=== PATIENT | female | born 1975 | race African-American/Black ===

== ENCOUNTER 2016-06-18 20:20 | Emergency (ER) | payer MEDICARE, OTHER ==
[~2016-06-18] VITALS: Ht 165.1 cm; Wt 74.6 kg
[~2016-06-18 20:20] MED LIST: BACTRIM DS1 TAB PO; DEPO-PROVER150 MG/M1 IM; FLEXERIL OR; HYDROCHLORO25 MG/TAB PO; HYDROXYCHLOR200 MG PO; LISINOPRIL10 MG PO; LORTAB 7.5 OR; LORTAB5 PO; MEDDOSEPAK PO; NAPROSYN500 MG OR; NAPROSYN500 MG PO; PREDNISONE; PROAIR HFA IN; PROTONIX40 MG PO; ROBITUSSIN AC10 ML PO; ZOFRAN4 MG OR; ZPAK PO; [UNRECOGNIZED DRUG - REMARK]
[2016-06-18] MEDS ORDERED: FLEXERIL5 MG PO (20:31)
[2016-06-18] MEDS ORDERED: PERCOCET 5/325M1 TAB PO (23:09)
[2016-06-18 23:16] VITALS: BP 138/92
== END 2016-06-18 23:25 | disposition home or self-care (01) ==
LOC: ED 20:20
DX: S86.911A Strain of unspecified muscle(s) and tendon(s) at lower leg level, right leg, initial encounter (principal); M79.604 Pain in right leg; R22.41 Localized swelling, mass and lump, right lower limb

== ENCOUNTER 2016-09-02 07:57 | Day surgery (SDC) | payer MEDICARE, OTHER ==
[~2016-09-02] VITALS: Ht 165.1 cm; Wt 75.7 kg
[~2016-09-02 07:57] MED LIST changes: +FLEXERIL5 MG PO; +PERCOCET 5/325M1 TAB PO
[2016-09-02] MEDS ORDERED: OMEPRAZOLE20 M2 PO (08:09)
[2016-09-02] MEDS ORDERED: DOXYCYCLINE (08:10)
[2016-09-02] MEDS ORDERED: LEFLUNOMIDE20 MG PO (08:10)
[2016-09-02] MEDS ORDERED: IBUPROFEN600 MG PO (08:11)
[2016-09-02] MEDS ORDERED: MORPHINE SUL (08:11)
[2016-09-02 08:45] LABS: BARBITURATES NEGATIVE (NEGATIVE); COCAINE NEGATIVE (NEGATIVE); METHADONE NEGATIVE (NEGATIVE); OXCYCODONE POSITIVE (NEGATIVE); TETRAHYDROCANNABIONOL NEGATIVE (NEGATIVE); TRICYLIC ANTIDEPRESSANTS NEGATIVE (NEGATIVE)
[2016-09-02 10:27] VITALS: BP 126/80
== END 2016-09-02 10:55 | disposition home or self-care (01) ==
LOC: ENDO 07:57 → ORM 13:15 → ENDO 13:55
PROVIDERS: ATTEND Internal Medicine Gastroenterology
PROC: 0DJD8ZZ Inspection of Lower Intestinal Tract, Via Natural or Artificial Opening Endoscopic (ICD-10-PCS; principal; 2016-09-02)
DX: K59.00 Constipation, unspecified (principal); R10.32 Left lower quadrant pain; R10.31 Right lower quadrant pain; K21.9 Gastro-esophageal reflux disease without esophagitis; R11.2 Nausea with vomiting, unspecified; R14.0 Abdominal distension (gaseous); R63.4 Abnormal weight loss; K64.4 Residual hemorrhoidal skin tags; K57.30 Diverticulosis of large intestine without perforation or abscess without bleeding; K64.8 Other hemorrhoids; I10 Essential (primary) hypertension; M32.9 Systemic lupus erythematosus, unspecified; Z80.0 Family history of malignant neoplasm of digestive organs

== ENCOUNTER 2018-04-04 13:21 | Emergency (ER) | payer OTHER, MEDICARE, MEDICAID ==
[~2018-04-04] VITALS: Ht 165.1 cm; Wt 90.0 kg
[~2018-04-04 13:21] MED LIST changes: +DOXYCYCLINE; +IBUPROFEN600 MG PO; +LEFLUNOMIDE20 MG PO; +MORPHINE SUL PO; +OMEPRAZOLE20 M2 PO
[2018-04-04] MEDS ORDERED: HYDROXYCHLOR200 MG PO (14:20)
[2018-04-04 15:10] VITALS: BP 144/84
== END 2018-04-04 15:10 | disposition home or self-care (01) | DRG 552 ==
LOC: ED 13:21
DX: M54.2 Cervicalgia (principal); M54.5 Low back pain; M54.6 Pain in thoracic spine; S16.1XXA Strain of muscle, fascia and tendon at neck level, initial encounter; S39.012A Strain of muscle, fascia and tendon of lower back, initial encounter; S29.012A Strain of muscle and tendon of back wall of thorax, initial encounter; R55 Syncope and collapse; V43.53XA Car driver injured in collision with pick-up truck in traffic accident, initial encounter; Y92.414 Local residential or business street as the place of occurrence of the external cause

== ENCOUNTER 2018-04-30 12:57 | Emergency (ER) | payer MEDICARE, MEDICAID ==
[~2018-04-30] VITALS: Ht 165.1 cm; Wt 90.0 kg
[2018-04-30 14:17] LABS: HEMATOCRIT 40.8 % (37.0-47.0); HEMOGLOBIN 13.7 g/dl (12.0-16.0); IMMATURE GRANULOCYTES 0.4 % (0.0-5.0); MEAN CELL VOLUME 84.8 fL CALC (80.0-100.0); MEAN CORPUSCULAR HGB 28.5 pG CALC (26.0-32.0); MEAN CORPUSCULAR HGB CONC 33.6 g/L CALC (32.0-36.0); NEUT# 6.63 thou/uL (2.00-7.15); RED BLOOD COUNT 4.81 mill/uL (4.20-5.60); RED CELL DISTRI WIDTH 12.9 % (11.5-15.5)
[2018-04-30 14:30] LABS: ALBUMIN 4.9 g/dL (3.2-5.0); ALKALINE PHOSPHATASE 66 u/l (38-126); ANION GAP 20 (6-22 (CALC)); BILIRUBIN, TOTAL 0.4 mg/dL (0.0-1.4); BUN 8 mg/dL (7-17); BUN/CREATININE RATIO 10 (12-20 (CALC)); CARBON DIOXIDE 23 mmol/l (22-30); CHLORIDE 105 mmol/l (95-108); CREATININE 0.8 mg/dL (0.5-1.0); GFR > 60 ML/MIN (>=60 (CALC)); GFR FOR AFR.AMER. > 60 ML/MIN (>=60 (CALC)); POTASSIUM 3.5 mmol/l (3.5-5.1); SGOT/AST 24 u/l (14-36); SODIUM 144 mmol/l (137-146); TOTAL PROTEIN 8.1 g/dL (6.3-8.2)
[2018-04-30 14:53] LABS: URINE BILIRUBIN - DIPSTICK NEGATIVE (NEGATIVE); URINE BLOOD DIPSTICK NEGATIVE (NEGATIVE); URINE COLOR YELLOW; URINE GLUCOSE - DIPSTICK NEGATIVE (NEGATIVE); URINE KETONE 15 mg/dL (NEGATIVE); URINE LEUK ESTERASE NEGATIVE (NEGATIVE); URINE NITRITE - DIPSTICK NEGATIVE (Negative); URINE PH 8.5 (4.5-8.0); URINE PROTEIN - DIPSTICK TRACE mg/dL (NEG-TRACE); URINE SPECIFIC GRAVITY 1.015; URINE UROBILINOGEN - DIPSTICK 0.2 E.U./dL (0.2)
[2018-04-30 14:58] LABS: BARBITURATES NEGATIVE (NEGATIVE); COCAINE NEGATIVE (NEGATIVE); METHADONE NEGATIVE (NEGATIVE); OXCYCODONE NEGATIVE (NEGATIVE); TETRAHYDROCANNABIONOL NEGATIVE (NEGATIVE); TRICYLIC ANTIDEPRESSANTS NEGATIVE (NEGATIVE)
[2018-04-30] MEDS ORDERED: ONDANSETRON4 MG PO (15:14)
[2018-04-30 15:49] VITALS: BP 145/80
== END 2018-04-30 15:49 | disposition home or self-care (01) ==
LOC: ED 12:57
PROVIDERS: Emergency Medicine
DX: R11.2 Nausea with vomiting, unspecified (principal); R20.2 Paresthesia of skin; I10 Essential (primary) hypertension; I34.1 Nonrheumatic mitral (valve) prolapse; M32.9 Systemic lupus erythematosus, unspecified

== ENCOUNTER 2020-02-05 14:12 | Emergency (ER) | payer OTHER, MEDICARE, MEDICAID ==
[~2020-02-05] VITALS: Ht 165.1 cm; Wt 82.0 kg
[~2020-02-05 14:12] MED LIST changes: +ONDANSETRON4 MG PO
[2020-02-05 15:35] LABS: HEMATOCRIT 40.1 % (37.0-47.0); IMMATURE GRANULOCYTES 0.2 % (0.0-5.0); MEAN CELL VOLUME 86.1 fL CALC (80.0-100.0); MEAN CORPUSCULAR HGB 27.9 pG CALC (26.0-32.0); MEAN CORPUSCULAR HGB CONC 32.4 g/dL CAL (32.0-36.0); NEUT# 2.94 thou/uL (2.00-7.15); RED BLOOD COUNT 4.66 mill/uL (4.20-5.60); RED CELL DISTRI WIDTH 13.4 % (11.5-15.5)
[2020-02-05 16:03] LABS: ALBUMIN 4.3 g/dL (3.2-5.0); ALKALINE PHOSPHATASE 59 u/l (38-126); ANION GAP 15 (6-22 (CALC)); BILIRUBIN, TOTAL 0.3 mg/dL (0.0-1.4); BUN 11 mg/dL (7-17); BUN/CREATININE RATIO 12 (12-20 (CALC)); CARBON DIOXIDE 23 mmol/l (22-30); CHLORIDE 108 mmol/l (95-108); CREATININE 0.9 mg/dL (0.5-1.0); GFR > 60 ML/MIN (>=60 (CALC)); GFR FOR AFR.AMER. > 60 ML/MIN (>=60 (CALC)); LIPASE 58 u/l (23-300); POTASSIUM 3.4 mmol/l (3.5-5.1); SGOT/AST 21 u/l (14-36); SODIUM 142 mmol/l (137-146); TOTAL PROTEIN 7.7 g/dL (6.3-8.2)
[2020-02-05 18:15] VITALS: BP 164/92
== END 2020-02-05 18:20 | disposition home or self-care (01) | DRG 552 ==
LOC: ED 14:12
PROVIDERS: Family Medicine
DX: S16.1XXA Strain of muscle, fascia and tendon at neck level, initial encounter (principal); I10 Essential (primary) hypertension; V43.52XA Car driver injured in collision with other type car in traffic accident, initial encounter

== ENCOUNTER 2021-08-11 20:27 | Emergency (ER) | payer MEDICARE, MEDICAID ==
[~2021-08-11] VITALS: Ht 165.1 cm; Wt 75.0 kg
[2021-08-11] VITALS (14 sets, daily range): BP systolic 134–188; BP diastolic 79–109
[2021-08-11 21:08] LABS: HEMATOCRIT 42.2 % (37.0-47.0); HEMOGLOBIN 13.9 g/dl (12.0-16.0); IMMATURE GRANULOCYTES 0.3 % (0.0-5.0); MEAN CELL VOLUME 85.9 fL CALC (80.0-100.0); MEAN CORPUSCULAR HGB 28.3 pG CALC (26.0-32.0); MEAN CORPUSCULAR HGB CONC 32.9 g/dL CAL (32.0-36.0); NEUT# 2.92 thou/uL (2.00-7.15); RED BLOOD COUNT 4.91 mill/uL (4.20-5.60); RED CELL DISTRI WIDTH 12.8 % (11.5-15.5)
[2021-08-11 21:22] LABS: ALBUMIN 4.5 g/dL (3.2-5.0); ALKALINE PHOSPHATASE 69 u/l (38-126); ANION GAP 14 (6-22 (CALC)); BUN 10 mg/dL (7-17); BUN/CREATININE RATIO 14 (12-20 (CALC)); CARBON DIOXIDE 25 mmol/l (22-30); CHLORIDE 104 mmol/l (95-108); CREATININE 0.7 mg/dL (0.5-1.0); ETHYL ALCOHOL 0 mg/dl (0-30); GFR > 60 ML/MIN (>=60 (CALC)); GFR FOR AFR.AMER. > 60 ML/MIN (>=60 (CALC)); LIPASE 68 u/l (23-300); POTASSIUM 3.6 mmol/l (3.5-5.1); SGOT/AST 20 u/l (14-36); SODIUM 140 mmol/l (137-146); TOTAL PROTEIN 8.1 g/dL (6.3-8.2)
[2021-08-11 21:23] LABS: ACT PARTIAL THROMBO TIME 22.9 SECONDS (20.0-32.5); BILIRUBIN, TOTAL 0.1 mg/dL (0.0-1.4); PROTHROMBIN TIME 10.1 SECONDS (9.0-12.5)
[2021-08-12] VITALS: BP 152/91
[2021-08-12 00:15] VITALS: BP 156/95
[2021-08-12 00:30] VITALS: BP 141/90
[2021-08-12 00:45] VITALS: BP 163/103
[2021-08-12 00:58] VITALS: BP 152/96
== END 2021-08-12 00:59 | disposition home or self-care (01) ==
LOC: ED 20:27
DX: R07.9 Chest pain, unspecified (principal); I10 Essential (primary) hypertension; J45.909 Unspecified asthma, uncomplicated

== ENCOUNTER 2022-03-08 07:15 | Emergency (ER) | payer OTHER, MEDICARE ==
[2022-03-08] VITALS (11 sets, daily range): BP systolic 138–160; BP diastolic 92–122
[~2022-03-08] VITALS: Ht 165.1 cm; Wt 77.3 kg
[2022-03-08] MEDS ORDERED: NORVASC5 M1 PO (07:32)
[2022-03-08 07:57] LABS: HEMATOCRIT 37.5 % (37.0-47.0); HEMOGLOBIN 12.4 g/dl (12.0-16.0); IMMATURE GRANULOCYTES 0.2 % (0.0-5.0); MEAN CELL VOLUME 88.7 fL CALC (80.0-100.0); MEAN CORPUSCULAR HGB 29.3 pG CALC (26.0-32.0); MEAN CORPUSCULAR HGB CONC 33.1 g/dL CAL (32.0-36.0); NEUT# 2.06 thou/uL (2.00-7.15); RED BLOOD COUNT 4.23 mill/uL (4.20-5.60); RED CELL DISTRI WIDTH 13.7 % (11.5-15.5)
[2022-03-08 08:20] LABS: ALBUMIN 4.1 g/dL (3.2-5.0); ALKALINE PHOSPHATASE 66 u/l (38-126); ANION GAP 13 (6-22 (CALC)); BUN 13 mg/dL (7-17); BUN/CREATININE RATIO 17 (12-20 (CALC)); CARBON DIOXIDE 25 mmol/l (22-30); CHLORIDE 107 mmol/l (95-108); CREATININE 0.8 mg/dL (0.5-1.0); GFR FOR AFR.AMER. > 60 ML/MIN (>=60 (CALC)); GFR OTHER RACES > 60 ML/MIN (>=60 (CALC)); POTASSIUM 3.7 mmol/l (3.5-5.1); SGOT/AST 30 u/l (14-36); SODIUM 142 mmol/l (137-146)
[2022-03-08 08:23] LABS: BILIRUBIN, TOTAL 0.2 mg/dL (0.0-1.4)
[2022-03-08 09:10] LABS: URINE BILIRUBIN - DIPSTICK NEGATIVE (NEGATIVE); URINE BLOOD DIPSTICK NEGATIVE (NEGATIVE); URINE CLARITY CLEAR; URINE COLOR YELLOW; URINE GLUCOSE - DIPSTICK NEGATIVE (NEGATIVE); URINE KETONE NEGATIVE (NEGATIVE); URINE LEUK ESTERASE NEGATIVE (Negative); URINE NITRITE - DIPSTICK NEGATIVE (Negative); URINE PH 6.5 (4.5-8.0); URINE PROTEIN - DIPSTICK NEGATIVE (NEG-TRACE); URINE UROBILINOGEN - DIPSTICK 0.2 E.U./dL (0.2)
[2022-03-08] MEDS ORDERED: CELEBREX100 M1 PO (12:25)
[2022-03-08] MEDS ORDERED: FLEXERIL5 M1 PO (12:25)
== END 2022-03-08 12:46 | disposition home or self-care (01) | DRG 90 ==
LOC: ED 07:15
PROVIDERS: Emergency Medicine
DX: S06.0X0A Concussion without loss of consciousness, initial encounter (principal); S16.1XXA Strain of muscle, fascia and tendon at neck level, initial encounter; R07.89 Other chest pain; I10 Essential (primary) hypertension; M32.9 Systemic lupus erythematosus, unspecified; I34.1 Nonrheumatic mitral (valve) prolapse; J45.909 Unspecified asthma, uncomplicated; V49.40XA Driver injured in collision with unspecified motor vehicles in traffic accident, initial encounter